=== PATIENT | male | born 1945 | race Two or more races ===

== ENCOUNTER 2019-01-10 17:01 | Emergency (ER) | payer OTHER ==
[~2019-01-10] VITALS: Ht 167.6 cm; Wt 60.0 kg
[2019-01-10 17:03] VITALS: Ht 167.6 cm; Wt 60.0 kg
[2019-01-10] MEDS ORDERED: ALBUTEROL/IPRATROPIUM (NEB) 3 ML AMP HHN STA (18:38)
[2019-01-10] MEDS ORDERED: FUROSEMIDE 20 MG INJ IV ONE (19:00)
--- NOTE | 2019-01-10 20:21 | ERD ---
ER Documentation Chief Complaint Chief Complaint Hypertension started today patient on hospice HPI This is a 73-year-old male who currently is on hospice and was transferred to the emergency department after he had been experiencing hypertension. The patient states he been taking his blood pressure roughly 3 times a day. For the past 3 days he states he had a systolic of greater than 190. The patient had a previous history of a kidney transplant 10 years ago and is taking his antirejection medications. The patient also has a history of congestive heart failure. He denies any swelling of his lower extremities. He has no shortness of breath. The patient does take Coumadin as he has a history of a pulmonary embolism. The patient indicates he has been compliant with all of his medications. He denies any polyuria polydipsia. He is an insulin-dependent diabetic as well. He receives his treatment at [facility]. ROS All systems reviewed and are negative except as per history of present illness. Allergies Allergies: Coded Allergies: No Known Allergy (Unverified , 01/10/19) PMhx/Soc History of Surgery: No Anesthesia Reaction: No Hx Neurological Disorder: No Hx Respiratory Disorders: No Hx Cardiac Disorders: Yes (HTN , HIGH CHOLESTEROL ) Hx Psychiatric Problems: No Hx Miscellaneous Medical Probl: Yes (MUSCULAR WEAKNESS ) Hx Alcohol Use: No Hx Substance Use: No Hx Tobacco Use: Yes (QUIT X 4 MONTHS AGO ) Smoking Status: Former smoker Physical Exam Vitals Vital Signs Date Temp Pulse Resp B/P (MAP) Pulse Ox O2 O2 Flow FiO2 Time Delivery Rate 01/10/19 97.9 90 17 157/93 100 Room Air 20:12 (114) 01/10/19 99 15 156/90 100 Room Air 19:37 (112) 01/10/19 92 20 100 21 19:13 01/10/19 89 17 173/79 100 Room Air 18:29 (110) 01/10/19 92 18 168/86 100 Room Air 18:15 (113) 01/10/19 98.0 103 18 173/87 98 17:03 (115) Physical Exam Constitutional:Well-developed. Well-nourished. HEENT:Normocephalic. Atraumatic.Pupils were equal round reactive to light. Moist mucous membranes.No tonsillar exudates. Neck: No nuchal rigidity. No lymphadenopathy. No posterior cervical spine tenderness or step-offs. Respiratory: Not using accessory muscles of respiration.Lungs were clear to auscultation bilaterally. Mild rhonchi bilaterally. No rales. No wheezing. Cardiovascular: Regular rate regular rhythm.No murmurs. No rubs were flaquita reciated.S1, S2 normal. Distal pulses are palpable 2+ bilaterally. GI: Abdomen was soft. Nontender. Non Distended. No pulsatile abdominal masses or bruits. No rebound. No guarding. Bowel sounds were present and normal. Muscle skeletal: Muscle atrophy of the bilateral lower extremities. Patient has no movement of the bilateral lower extremities against gravity. Skin: No petechia, no purpura. No lesions on the palms or the soles of the feet. No maculopapular rash. NEURO: Patient was alert, awake, orientated x3.No facial droop. Gait not observed as patient is bedbound. Speech had regular rate and rhythm. No focal neurological deficits. Result Diagram: 01/10/19 1721 01/10/19 1721 Results 24 hrs Laboratory Tests Test 01/10/19 17:21 White Blood Count 5.9 10^3/ul Red Blood Count 3.58 10^6/ul Hemoglobin 10.0 g/dl Hematocrit 32.6 % Mean Corpuscular Volume 91.1 fl Mean Corpuscular Hemoglobin 27.9 pg Mean Corpuscular Hemoglobin Concent 30.7 g/dl Red Cell Distribution Width 18.5 % Platelet Count 130 10^3/UL Mean Platelet Volume 10.3 fl Immature Granulocytes % 1.700 % Neutrophils % 73.5 % Lymphocytes % 19.3 % Monocytes % 4.3 % Eosinophils % 0.9 % Basophils % 0.3 % Nucleated Red Blood Cells % 0.0 /100WBC Immature Granulocytes # 0.100 10^3/ul Neutrophils # 4.3 10^3/ul Lymphocytes # 1.1 10^3/ul Monocytes # 0.3 10^3/ul Eosinophils # 0.1 10^3/ul Basophils # 0.0 10^3/ul Nucleated Red Blood Cells # 0.0 10^3/ul Prothrombin Time 15.7 Sec Prothrombin Time Ratio 1.2 INR International Normalized Ratio 1.24 Activated Partial Thromboplast Time 34.7 Sec Sodium Level 143 mmol/L Potassium Level 4.0 mmol/L Chloride Level 113 mmol/L Carbon Dioxide Level 21 mmol/L Anion Gap 9 Blood Urea Nitrogen 31 mg/dl Creatinine 1.20 mg/dl Est Glomerular Filtrat Rate mL/min mL/min Glucose Level 240 mg/dl Calcium Level 9.0 mg/dl Total Bilirubin 0.3 mg/dl Direct Bilirubin 0.00 mg/dl Indirect Bilirubin 0.3 mg/dl Aspartate Amino Transf (AST/SGOT) 13 IU/L Alanine Aminotransferase (ALT/SGPT) 11 IU/L Alkaline Phosphatase 65 IU/L Creatine Kinase 20 IU/L Creatine Kinase Index 8.1 Creatinine Kinase MB (Mass) 1.61 ng/ml Troponin I 0.034 ng/ml B-Type Natriuretic Peptide 7340 PG/ML Total Protein 6.4 g/dl Albumin 3.1 g/dl Globulin 3.30 g/dl Albumin/Globulin Ratio 0.93 Current Medications Medications Dose Sig/Homar Start Time Status Last (Trade) Ordered Route PRN Stop Time Admin Dose Reason Admin Clonidine 0.1 mg ONCE ONCE 01/10/19 DC 01/10/19 (Catapres) PO 17:30 17:17 01/10/19 17:31 Furosemide 20 mg ONCE ONCE 01/10/19 DC 01/10/19 (Lasix) IV 19:00 18:51 01/10/19 19:01 Albuterol/ 3 ml ONCE STAT 01/10/19 DC 01/10/19 Ipratropium HHN 18:38 19:12 (Duoneb) 01/10/19 18:39 Procedures/MDM This patient presented to the emergency department with severely elevated blood pressure. My differential diagnosis included but was not limited to conditions that could end-organ damage such as acute coronary syndrome, acute pulmonary edema, aortic dissection, subarachnoid hemorrhage, intracerebral hemorrhage, cerebral infarction, withdrawal syndromes from beta blockers, or states of catecholamine excess such as pheochromocytoma or drug intoxication. Ancillary lab work was obtained. There was no elevation in the BUN and creatinine to suggest acute renal failure. Electrolytes were normal. Cardiac enzyme was normal and the 12 lead EKG showed no acute ischemic changes or left ventricular hypertrophy. 12 Lead EKG tracing ordered and reviewed by myself showed: Normal sinus rhythm of 95 bpm and no arrhythmia. UT interval normal. QRS duration normal. No ST segment elevation No ST segment depression. No changes consistent with acute ischemia. Chest radiograph was obtained and the patient did have pulmonary vascular congestion. No infiltrates. The patient's BNP was significantly elevated. I did feel the patient's hypertension was also result of his CHF exacerbation. He received IV Lasix and nebulizer treatments. He was also given clonidine with improvement of his blood pressure. The patient received treatment at [facility]. I spoke with the [facility] and the patient will be directly admitted to [facility]. Departure Diagnosis: Primary Impression: Hypertensive crisis Additional Impressions: Hyperglycemia without ketosis CHF exacerbation Heart failure type: unspecified Qualified Codes: I50.9 - Heart failure, unspecified Condition: Serious TERE CHANDLER MD Jan 10, 2019 20:21
[2019-01-10 20:45] VITALS: BP 142/83; PULSE 87; RESP 14
== END 2019-01-10 20:51 | disposition short-term general hospital (02) ==
LOC: E/R 17:01
DX: I16.9 Hypertensive crisis, unspecified (principal); E11.65 Type 2 diabetes mellitus with hyperglycemia; I11.0 Hypertensive heart disease with heart failure; I50.9 Heart failure, unspecified; Z79.01 Long term (current) use of anticoagulants; Z87.891 Personal history of nicotine dependence
CPT/HCPCS: 71045; 80053; 82550; 82553; 83880; 84484; 85025; 85610; 85730; 93005; 94664; 96374; 99285; J1940